=== PATIENT | female | born 1990 | race Caucasian/White ===

== ENCOUNTER 2018-03-05 14:15 | Emergency (ER) | payer OTHER ==
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
--- NOTE | 2018-03-05 16:09 | RAD ---
Indication: Sacral pain. 2 views of the sacrum demonstrates no fracture. Sacral foramina are patent. No fracture is noted. IMPRESSION: No fracture of the sacrum is noted.
== END 2018-03-05 16:49 | disposition home or self-care (01) ==
LOC: UCEAST 14:15
DX: M54.5 Low back pain (principal); Z72.0 Tobacco use
CPT/HCPCS: 72220; 99202; G0463

== ENCOUNTER 2019-03-08 00:20 | Inpatient (IN) | payer OTHER ==
[2019-03-08] MEDS ORDERED: Nalbuphine* 10 MG/ML 1 ML VIAL IV ONE (01:47)
[2019-03-08] MEDS ORDERED: Promethazine INJ(RESTRICTED)* 25 MG/ML 1 ML VIAL IV ONE (01:47)
[2019-03-08] MEDS ORDERED: Buffered Lidocaine 1% SYRIN* 1 ML/SYRINGE INTRADERM ONE (01:47)
--- NOTE | 2019-03-08 02:04 | HP ---
General Information - Reason for Visit Pt with SROM to clear fluid around 1430, had been in prodromal labor prior to that, now ctx have increased in strength and frequency. - General Information Maternal Age: 28 Grav: 2 Para: 0 SAB: 0 IEA: 1 Estimated Due Date: 03/02/19 Determined By: LMP Gestational Age in Weeks/Days: 40 6/7 Maternal Blood Type and Rh: O Positive - Results this Serology/RPR Result: Non-Reactive Rubella Result: Immune HBsAg Result: Negative HIV Result: Negative GBS Culture Result: Negative Past Medical History Pertinent Past Medical History: See Records - back pain, scoliosis, anxiety Pertinent Past Surgical History: See Records - inguinal hernia repair Pertinent Family History: See Records - HTN - Antepartal Records Antepartal Records: Reviewed, Complicated by: - obesity, however pt succeeded in limiting weight gain to 10# Review of Systems Constitutional: Uncomfortable CV Complaint: No Respiratory: Shortness of Breath: No Gastrointestinal: No Nausea/Vomiting, Normal Bowel Movement Genitourinary: Leaking Fluid, No Dysuria, No Bleeding Musculoskeletal: No Epigastric Pain, Contractions Neurological: No Headache, No Visual Changes Movement: Normal Exam Allergies/Adverse Reactions: Allergies No Known Allergies Allergy (Verified 03/08/19 00:24) Vital Signs 03/08/19 00:57 Temperature 97.2 F Pulse Rate 106 Respiratory 20 Rate Blood Pressure 115/78 (mmHg) O2 Sat by Pulse 100 Oximetry - Measurements Height: 5 ft 6 in Weight: 101.151 kg Weight in lbs: 213.814313 Body Mass Index (BMI): 35.9 Pre- Weight: 96.615 kg Weight Gained This : 0 lbs and 0 ozs - Exam Breast: Breast Exam Deferred CVA: No CVA Tenderness Extremities: No Edema Heart: Normal Rhythm/Heart Sounds HEENT: No Significant Findings Lungs: Clear Bilaterally Rectal: Rectal Exam Deferred Reflexes: DTR 2+ Thyroid: No Thyromegaly - Abdominal Exam Abdomen Exam: Non-Tender, Fundal Height Consistent with Dates - Ultrasound/Biophysical Profile Ultrasound Status: Not Done Targeted Exam Findings See L&D Outpatient Visit Provider Note for Findings: Yes Estimated Weight: 8# Cervical Exam: 1cm Effacement: 80% Station: -3 Presenting Part: Vertex Membrane Status: SROM Amniotic Fluid Evaluation: Positive ROM Plus, Clear Bleeding/Discharge: None EFM Findings - External Monitor Findings Baseline Heart Rate: 125 External Monitor Findings: Accelerations Present, No Pattern of Variable or Late Decelerations, Variability Moderate, Baseline Stable Contractions: Regular, Mild, Moderate, 45-90 Seconds Contraction Frequency: 3-8 minutes Assessment/Plan - Assessment 28 year old at 40 6/7 weeks gestation with ruptured membranes, getting into active labor pattern, fluid clear, no evidence of acidemia or chorioamnionitis - Obstetrical Risk Factors Obstetrical Risk Factors: Post-Dates, Obesity - Plan Plan: Admit - Anticipate Vaginal Delivery - Date/Time of Admission Date of Admission: 03/08/19 Time of Admission: 00:52
[2019-03-08 02:26] LABS: ABS Eosinophils 0.1 10^3/ul (0-0.6); ABS Lymphocytes 1.8 10^3/ul (1.0-4.8); ABS Monocytes 0.7 10^3/ul (0-0.8); ABS Neutrophils 8.3 10^3/ul (1.5-7.7); Eosinophil % 0.9 %; Hematocrit 40 % (35-47); Hemoglobin 13.9 g/dL (12.0-16.0); Lymphocyte % 16.4 %; Mean Corpuscular HGB Conc 35 g/dL (31-36); Mean Corpuscular Hemoglobin 30 pg (27-31); Mean Corpuscular Volume 86 fL (80-97); Mean Platelet Volume 9.5 fL (7.4-10.4); Platelet Count 148 10^3/uL (150-450); Red Blood Count 4.67 10^6 /uL (3.70-4.87); Red Cell Distribution Width 14 % (10-15); White Blood Count 10.8 10^3/uL (3.5-10.8)
[2019-03-08 02:43] LABS: Urine Benzodiazepine Screen None Detected (None Detect); Urine Opiates Screen None Detected (None Detect)
--- NOTE | 2019-03-08 08:00 | PN ---
Progress Note - Progress Note Date of Service: 03/08/19 SOAP: Subjective: Pt slept well after receiving Nubain and Phenergan last night. She reports ctx still feel strong, although farther apart. at bedside, slept too. Objective: Cervical exam deferred FHR: Baseline 120/ periods of minimal and periods of moderate variability/ + accels/ no decels UCs: 7-10 minutes, mild to moderate by palpation Temp: 98.5 BP:111/83 ROM 17 hours Fluid clear Assessment: at 40 6/7 weeks gestation with ruptured membranes, no evidence of chorioamnionitis or acidemia, not yet in active labor Plan: Recommended Pitocin augmentation at this time. Pt in agreement. Cervical exam deferred as pt clearly not in active labor yet and membranes ruptured. Labor support and comfort measures as needed, epidural for pain relief in active labor.
[2019-03-08] MEDS: Oxytocin in LR* 20 UNITS/1,000 ML BAG IVPB SCH (08:15)
[2019-03-08] MEDS: Lactated Ringers 1000 ML Bag* 1,000 ML IV ONE ×2 (08:15→08:19)
--- NOTE | 2019-03-08 09:56 | PN ---
Progress Note - Progress Note Date of Service: 03/08/19 SOAP: Subjective: Pt reports ctx feeling more frequent, coping well. Lying on right side in a nest of pillows on the cot with her partner, friend/ floor mechanic at bedside Objective: FHR: Baseline 120/ moderate variability/ + accels/ no decels UCs: diffcult to trace, toco adjusted, looks like about every 2-6 minutes Temp: 97.4 Pitocin at 8 mu/min Assessment: No evidence of chorioamnionitis or acidemia. Pt does not yet appear to be in active labor, undergoing Pitocin augmentation for prelabor rupture of membranes. Plan: Continue Pitocin augmentation. Labor support and comfort measures as needed.
[2019-03-08] MEDS ORDERED: OBEPIDURAL* 250 ML EPIDURAL ONE (11:48)
--- NOTE | 2019-03-08 11:54 | PN ---
Progress Note - Progress Note Date of Service: 03/08/19 SOAP: Subjective: Pt increasingly uncomfortable. Requests epidural. In tub at the moment. and binder cutter with her. Objective: FHR: Baseline 130/ no decelerations visualized/ tracing interrupted due to pt's positioning, readjusted UCs: appear about every 3 minutes Pitocin at 12 mu/min Temp: 98.4, BP: 122/74 Assessment: Pt appears to be getting into more active labor. Cervical exam deferred at this time. No evidence of chorioamnionitis or acidemia. Plan: Dr. Husain called for epidural placement. As pt is already on Pitocin and is very uncomfortable and requesting an epidural, will try to get her more comfortable with epidural and then evaluate labor progress. Continue Pitocin augmentation.
[2019-03-08] MEDS ORDERED: EPHEDrine (Pressors)* 50 MG/ML VIAL IV PUSH PRN ×2 (12:48)
[2019-03-08] MEDS ORDERED: Sodium Citrate/Citric Acid* 15 ML UDC PO PRN (12:48)
[2019-03-08] MEDS ORDERED: Lactated Ringers 1000 ML Bag* 1,000 ML IV ONE (12:48)
[2019-03-08] MEDS ORDERED: Famotidine TAB* 20 MG PO PRN (12:48)
[2019-03-08] MEDS ORDERED: Phenylephrine 40 MCG/ML SYRINGE IV PUSH PRN ×2 (12:48)
[2019-03-08] MEDS: Lactated Ringers 1000 ML Bag* 1,000 ML IV SCH ×2 (12:53→20:45)
[2019-03-08] MEDS ORDERED: OBEPIDURAL* 250 ML EPIDURAL SCH (13:00)
[2019-03-08] MEDS ORDERED: Lactated Ringers 1000 ML Bag* 1,000 ML IV SCH (13:00)
--- NOTE | 2019-03-08 13:18 | PN ---
Progress Note - Progress Note Date of Service: 03/08/19 SOAP: Subjective: Pt comfortable with epidural Objective: Cervix: 2-3 cm/ 80%/ -2/ vtx Ctx: 1-5 minutes FHR: Baseline 120/ moderate variability/ + accels/ no decels Pitocin at 8 mu/ min (reduced during epidural placement) Assessment: Pt making some progress, still in early labor. Comfortable with epidural. No evidence of acidemia or chorioamnionitis. Plan: Continue Pitocin augmentation. Continuous EFM. Regular position changes.
--- NOTE | 2019-03-08 14:52 | PN ---
Progress Note - Progress Note Date of Service: 03/08/19 SOAP: Subjective: Pt remains comfortable with epidural. Resting. Partner and brand representative at bedside. Objective: FHR: Baseline 125/ moderate variability/ + accels/ no decels UCs: 3-4 minutes Pitocin at 12 mu/min Temp: 97.8 BP: 112/72 ROM 24 hours Assessment: Pt comfortable and getting into a regular ctx pattern. No evidence of acidemia or chorioamnionitis. Plan: Continue Pitocin augmentation. Recheck cervix in a few hours or as needed.
--- NOTE | 2019-03-08 16:43 | PN ---
Progress Note - Progress Note Date of Service: 03/08/19 SOAP: Subjective: Pt sleeping comfortably in bed. Objective: Pitocin at 18 mu/min FHR: Baseline 125/ moderate variability/ no accels/ no decels UCs: 3-5 minutes BP: 120/71 Temp: 98.0 Assessment: No evidence of chorioamnionitis or acidemia. Plan: Will recheck pt around 1800. Continue Pitocin augmentation. If lack of significant change, may consider IUPC placement.
--- NOTE | 2019-03-08 18:29 | PN ---
Progress Note - Progress Note Date of Service: 03/08/19 SOAP: Subjective: Pt remains comfortable with epidural. Partner at bedside. Objective: Cervix: 3-4 cm/ 80%/ -1/ vtx Forebag ruptured to clear fluid FHR: Baseline 125/ moderate variability/ + accels/ no decels UCs: 2-3 minutes Temp: 98.8 BP: 104/76 Assessment: Pt making progress, but slow. No evidence of acidemia or chorioamnionitis. Plan: Recheck in 3 hours or sooner as needed. IUPC if no/minimal change. Pt currently in hands and knees position.
--- NOTE | 2019-03-08 20:26 | PN ---
Progress Note - Progress Note Date of Service: 03/08/19 SOAP: Subjective: Pt reports some increase in discomfort with ctx, using bolus button Objective: FHR: Baseline 135/ moderate variability/ no accels/ no decels UCs: 2-3 minutes Pitocin at 22 mu/min BP: 132/83 Temp: 98.8 Assessment: No evidence of acidemia or chorioamnionitis. Some increasing discomfort. Plan: Continue Pitocin augmentation. Will plan to recheck around 2200 or sooner as needed.
[2019-03-08] MEDS ORDERED: Ropivacaine (OR use only) 2 MG/ML 10 ML ONE (21:30)
--- NOTE | 2019-03-08 22:08 | PN ---
Progress Note - Progress Note Date of Service: 03/08/19 SOAP: Subjective: Pt feeling much more comfortable after Dr. Cottrell bolused her epidural. Objective: Temp now 99.1, was 100.1 at previous check Cervix: 5-6 cm/ 90%/ -1/ vtx FHR: Baseline 130/ moderate variability/ + accels, no decels UCs: 1-3 Pitocin at 22 mu/min Assessment: Pt making more progress, temp was mildly elevated but resolved following IV fluid bolus. Pt more comfortable with epidural bolus. Plan: Continue Pitocin augmentation, recheck in a few hours, anticipate .
--- NOTE | 2019-03-09 01:10 | PN ---
Progress Note - Progress Note Date of Service: 03/09/19 SOAP: Subjective: About 30 minutes ago pt began to report increasing pain with and between ctx. She reported feeling shaky and nauseous, having difficulty coping with ctx. Objective: Cervix: 7cm/ 80%/ -1/ vtx FHR: Baseline 135/ moderate variability/ + accels/ no decels UCs: 2-3 minutes Temp:98.6 BP: 119/77 Pitocin off Assessment: Pt continues to make slow but steady progress. No current evidence of acidemia. Pt no longer receiving adequate pain relief. Plan: When initially called to bedside to assess pt shortly before 0000, pt diego almost continuously. Pitocin reduced by half, then turned off altogether. Dr. Inman notified of pt's pain level, requested to provide bolus. Will likely need to restart the Pitocin once pt is more comfortable. Will recheck cervix in a few hours or as needed.
[2019-03-09] MEDS ORDERED: Bupivacaine 0.25% SDV PF* 10 ML VIAL INJ ONE ×2 (01:18→07:27)
--- NOTE | 2019-03-09 07:08 | PN ---
Progress Note - Progress Note Date of Service: 03/09/19 SOAP: Subjective: Pt comfortable following second bolus and increase in epidural infusion rate. Objective: Cervix: 7cm/ 80%/ -1/ vtx FHR: Baseline 135/ moderate variability/ + accels/ no decels UCs: MVUs 115, Ctx Q 3-5 minutes Pitocin increased to 12 mu/min Fluid clear Temp:98.0 Assessment: Pt making inadequate cervical change. Ctx pattern inadequate based on MVUs. Plan: Discussed options with pt. It would not be unreasonable to consider a at this time. Pt with strong preference to avoid. IUPC placed and will titrate Pitocin accordingly.
[2019-03-09] MEDS ORDERED: D5LR 1000 ML BAG* 500 ML IV ONE (07:23)
--- NOTE | 2019-03-09 08:35 | PN ---
Progress Note - Progress Note Date of Service: 03/09/19 Note: Subjective: Report from Garfield Solis CNM. Pt comfortable following third bolus and increase in epidural infusion rate. Sitting in throne position. Objective: Cervix: VE deferred, last check 0600 7cm/80%/-1, vtx FHR: Baseline 135/ moderate variability/ + accels/ no decels UCs: IUPC in place -MVUs 200, Ctx Q 3-5 minutes Pitocin increased to 16 mu/min D5LR bolus infused. Fluid clear Temp:98.3 Assessment: Pt making inadequate cervical change. Ctx pattern adequate based on MVUs. Plan: Continuing position changes. Discussed options with pt. Will try Walcher's position. Pt with strong preference to avoid, but tired, and understands Will titrate Pitocin accordingly Garfield Garcia MD in house and aware of patient status.
[2019-03-09] MEDS ORDERED: Ondansetron INJ* 2 MG/ML VIAL IV PRN (08:55)
--- NOTE | 2019-03-09 08:55 | PN ---
Progress Note - Progress Note Date of Service: 03/09/19 Note: Subjective: Pt comfortable following third bolus and increase in epidural infusion rate. Sitting in throne position. Feeling nauseated. Objective: Cervix: 8.5cm/80%/-1, vtx FHR: Baseline 145/ moderate variability/ + accels/ no decels UCs: IUPC in place -MVUs 200, Ctx Q 2-4 minutes Pitocin increased to 16 mu/min Fluid clear Temp:98.3 Assessment: Pt made cervical change. Ctx pattern adequate based on MVUs. Plan: Continuing position changes. Pt tolerated Walcher's position. Will now continue with side-lying position. Pt with strong preference to avoid, but tired, and understands Will titrate Pitocin accordingly Juliafran now. Garfield Garcia MD in house and aware of patient status.
[2019-03-09] MEDS: Oxytocin in LR* 20 UNITS/1,000 ML BAG IVPB SCH (13:55)
[2019-03-09] MEDS ORDERED: Varicella Virus Vaccine Live* 0.5 ML VIAL SUBCUT ONE (14:36)
[2019-03-09] MEDS ORDERED: Misoprostol TAB* 200 MCG PR ONE (14:36)
[2019-03-09] MEDS ORDERED: Glycerin ADULT SUPP PR PRN (14:36)
[2019-03-09] MEDS ORDERED: Lactated Ringers 1000 ML Bag* 1,000 ML IV SCH (15:00)
[2019-03-09] MEDS ORDERED: Oxytocin in LR* 20 UNITS/1,000 ML BAG IVPB SCH (15:00)
[2019-03-09] MEDS: Ibuprofen TAB* 600 MG PO SCH ×2 (15:57→22:30)
[2019-03-09] MEDS: Acetaminophen TAB* 325 MG PO PRN ×2 (15:57→22:30)
--- NOTE | 2019-03-09 16:06 | PROCNOTE ---
[facility] OB: Delivery Note - Delivery A Date of : 03/09/19 Time of : 13:18 [place] Sex: Male Weight at : 8 lb 11 oz Score 1 Minute: 8 Score 5 Minutes: 9 Gestational Age in Weeks and Days at Delivery: 41 Weeks and 0 Days Delivery Method: Spontaneous Vaginal Labor: Spontaneous Did Patient attempt ?: N/A, No Previous Amniotic Fluid: Meconium Estimated Blood Loss: 500 Anesthesia/Analgesia: None Delivered By: Lilibeth Luna - Nursery Level of Nursery: Regular/Bedside - Perineum Perineal Injury: Perineal Laceration, 1st Degree Perineal Injury Comment: left labial laceration and periurethral abrasion Perineal Repair: By Delivering Practioner - Events Delivery Events of Note: Pitocin During Labor, Protracted/Long Labor, Post- Bleeding - Meds Given, IUPC Use - Additional Delivery Notes Additional Delivery Notes: G1, now P1 at 41 weeks was admitted on 03/08/19 for confirmed SROM at 0000. Labor was augmented with Pitocin. Pt progressed to 7cm with CEI infusing before labor stalled. An IUPC was placed and contractions were found to be inadequate. Pitocin was titrated and [employer] mechanisms employed. Pt finally progressed to complete/complete with 16mU of Pitocin at 1115. Pushing began at 1134. of a single, liveborn, male infant OP to [facility] followed after 1 hour and 44 minutes of pushing. Terminal mec noted. Infant was placed on mother's chest, HR >100, lusty cry, 's 8, 9. Cord was doubly clamped and cut by FOB once pulsations ceased. The placenta delivered spontaneously via klaudia at 1328. Samples collected for [place] study. Moderate bleeding noted. IVPB Pitocin was given and Misoprostol, 800mcg, given TN. Fundus firmed and bleeding ceased. EBL 500mL. Perineum and vagina carefully inspected. A first degree laceration, left labial laceration, bilateral periurethral abrasions were noted. Repair of the perineal and labial laceration were completed in the usual fashion, with CEI infusing, under 1% local lidocaine. Anatomy restored, hemostasis achieved. Male breast feeding. Mother and baby stable at time of note.
[2019-03-09] MEDS ORDERED: Simethicone TAB* 80 MG TAB.CHEW PO SCH (17:30)
[2019-03-09] MEDS ORDERED: Misoprostol TAB* 200 MCG ONE (18:16)
[2019-03-09] MEDS: Docusate CAP* 100 MG PO SCH (22:30)
[2019-03-10] MEDS: Ibuprofen TAB* 600 MG PO SCH ×4 (03:31→20:09)
[2019-03-10] MEDS: Acetaminophen TAB* 325 MG PO PRN (03:45)
[2019-03-10] MEDS: Witch Hazel PAD* JAR TOPICAL PRN ×2 (04:33→09:02)
[2019-03-10] MEDS: Dibucaine 1% 28.35 GM TUBE PR PRN ×3 (04:33→15:54)
[2019-03-10 06:37] LABS: ABS Eosinophils 0.2 10^3/ul (0-0.6); ABS Lymphocytes 1.9 10^3/ul (1.0-4.8); ABS Monocytes 0.8 10^3/ul (0-0.8); ABS Neutrophils 10.5 10^3/ul (1.5-7.7); Eosinophil % 1.5 %; Hematocrit 36 % (35-47); Hemoglobin 12.5 g/dL (12.0-16.0); Mean Corpuscular HGB Conc 35 g/dL (31-36); Mean Corpuscular Hemoglobin 30 pg (27-31); Mean Corpuscular Volume 86 fL (80-97); Mean Platelet Volume 9.4 fL (7.4-10.4); Nucleated Red Blood Cells % 0.1; Platelet Count 123 10^3/uL (150-450); Red Blood Count 4.18 10^6 /uL (3.70-4.87); Red Cell Distribution Width 14 % (10-15); White Blood Count 13.5 10^3/uL (3.5-10.8)
[2019-03-10] MEDS ORDERED: Ferrous Gluconate TAB* 324 MG TAB PO SCH (09:00)
[2019-03-10] MEDS: Docusate CAP* 100 MG PO SCH ×3 (09:02→20:09)
[2019-03-10] MEDS ORDERED: Misoprostol TAB* 200 MCG PR ONE (18:15)
[2019-03-11] MEDS: Ibuprofen TAB* 600 MG PO SCH ×2 (08:36→14:45)
[2019-03-11] MEDS: Docusate CAP* 100 MG PO SCH ×2 (08:36→13:30)
[2019-03-11] MEDS: Dibucaine 1% 28.35 GM TUBE PR PRN ×2 (08:37→14:46)
[2019-03-11] MEDS: Witch Hazel PAD* JAR TOPICAL PRN ×2 (08:37→14:46)
[2019-03-11] MEDS ORDERED: Influenza VAC *QUAD* 2019-20* 0.5 ML SYRINGE IM ONE (09:00)
[2019-03-11 11:44] VITALS: BP 124/79
== END 2019-03-11 15:06 | disposition home or self-care (01) | DRG 560 ==
LOC: MCHOBOUT 00:20 → MCHOB 00:52
PROVIDERS: ADMIT Midwife; ATTEND Advanced Practice Midwife
PROC: 10E0XZZ Delivery of Products of Conception, External Approach (ICD-10-PCS; principal; 2019-03-09)
PROC: 10907ZC Drainage of Amniotic Fluid, Therapeutic from Products of Conception, Via Natural or Artificial Opening (ICD-10-PCS; 2019-03-09)
PROC: 0HQ9XZZ Repair Perineum Skin, External Approach (ICD-10-PCS; 2019-03-09)
DX: O48.0 Post-term pregnancy (principal); Z37.0 Single live birth; Z3A.41 41 weeks gestation of pregnancy; O99.344 Other mental disorders complicating childbirth; F41.9 Anxiety disorder, unspecified; O77.0 Labor and delivery complicated by meconium in amniotic fluid; O70.0 First degree perineal laceration during delivery; O99.214 Obesity complicating childbirth
CPT/HCPCS: 36415; 80307; 85025; 86850; 86900; 86901; 90686; A9270-GY; J2300; J2550; J2795; J3490